=== PATIENT | male | born 1980 | race Caucasian/White ===

== ENCOUNTER → 2016-12-22 | Outpatient (REF) | payer BC | LOC: M LAB REF 12:16 | PROVIDERS: ATTEND Physician Assistant Medical | DX: M54.5 Low back pain (principal) ==

== ENCOUNTER → 2017-03-26 | Outpatient (REF) | payer BC | LOC: M LAB REF 17:35 | DX: J02.9 Acute pharyngitis, unspecified (principal) | CPT/HCPCS: 87081 ==

== ENCOUNTER 2017-12-26 22:20 | Emergency (ER) | payer BC | END 2017-12-27 02:29 | disposition left against medical advice (07) | LOC: M ED 22:20 | DX: Z53.29 Procedure and treatment not carried out because of patient's decision for other reasons (principal) ==

== ENCOUNTER 2017-12-27 12:29 | Emergency (ER) | payer BC ==
[2017-12-27] MEDS: KETOROLAC 30 MG/ML VIAL (J1885) IV (14:53)
== END 2017-12-27 15:10 | disposition home or self-care (01) ==
LOC: M ED 12:29
DX: K40.00 Bilateral inguinal hernia, with obstruction, without gangrene, not specified as recurrent (principal); Z88.5 Allergy status to narcotic agent; F17.200 Nicotine dependence, unspecified, uncomplicated
CPT/HCPCS: J1885

== ENCOUNTER → 2017-12-27 | Outpatient (CLI) | payer BC ==
[2017-12-27 12:56] LABS: BASO # 0.1 10^3/uL (0.0-0.2); BASO % 0.7 % (0.0-1.0); EOS # 0.3 10^3/uL (0.0-0.50); EOS % 3.5 % (0.0-3.0); HEMATOCRIT 47.7 % (42.0-52.0); IMMATURE GRANULOCYTE % 0.4 % (0-3.0); LYMPH # 1.9 10^3/uL (1.5-4.5); LYMPH % 23.1 % (24.0-44.0); MEAN CORPUSCULAR HEMOGLOBIN 28.8 pg (27.0-33.0); MEAN CORPUSCULAR HGB CONC 33.5 g/dl (32.0-36.5); MEAN CORPUSCULAR VOLUME 85.9 fl (80.0-96.0); MONO # 0.8 10^3/uL (0.0-0.8); MONO % 9.5 % (0.0-5.0); NEUTROPHILS # 5.1 10^3/uL (1.8-7.7); NEUTROPHILS % 62.8 % (36.0-66.0); PLATELET COUNT, AUTOMATED 259 10^3/uL (150-450); RED BLOOD COUNT 5.55 10^6/uL (4.30-6.10); RED CELL DISTRIBUTION WIDTH 12.7 % (11.5-14.5)
[2017-12-27 13:11] LABS: ALBUMIN/GLOBULIN RATIO 1.05 (1.00-1.93); ALKALINE PHOSPHATASE 100 U/L (45-117); ALT/SGPT 38 U/L (12-78); AMYLASE 44 U/L (25-115); ANION GAP 9 MEQ/L (8-16); AST/SGOT 16 U/L (7-37); BILIRUBIN,TOTAL 0.3 MG/DL (0.2-1.0); BLOOD UREA NITROGEN 13 MG/DL (7-18); CALCIUM LEVEL 8.7 MG/DL (8.5-10.1); CARBON DIOXIDE LEVEL 24 MEQ/L (21-32); CHLORIDE LEVEL 107 MEQ/L (98-107); CREATININE FOR GFR 1.07 MG/DL (0.70-1.30); GLOMERULAR FILTRATION RATE > 60.0 (>60); GLUCOSE, FASTING 119 MG/DL (70-100); LIPASE 89 U/L (73-393); POTASSIUM SERUM 4.1 MEQ/L (3.5-5.1); SODIUM LEVEL 140 MEQ/L (136-145); TOTAL PROTEIN 7.8 GM/DL (6.4-8.2)
== END ==
LOC: M ADAMS 11:47
DX: R10.9 Unspecified abdominal pain (principal); K40.20 Bilateral inguinal hernia, without obstruction or gangrene, not specified as recurrent
CPT/HCPCS: 82150

== ENCOUNTER 2018-01-27 09:20 | Day surgery (SDC) | payer BC ==
[2018-01-27] MEDS ORDERED: LR 1,000 ML IV ×3 (09:30→16:30)
[2018-01-27] MEDS ORDERED: ONDANSETRON 4MG/2ML VIAL (J2405) As Ordered ×2 (09:59→16:18)
[2018-01-27] MEDS ORDERED: PROPOFOL 200 MG/20 ML VIAL As Ordered (09:59)
[2018-01-27] MEDS ORDERED: LIDOCAINE 2% INJ 100 MG/5 ML SDV (FOR ANES.) As Ordered (09:59)
[2018-01-27] MEDS ORDERED: ROCURONIUM BROMIDE 50 MG/5 ML VIAL As Ordered (09:59)
[2018-01-27] MEDS ORDERED: dexameTHASONE 4 MG/ML 1ML VIAL (J1100) As Ordered ×2 (09:59)
[2018-01-27] MEDS ORDERED: fentaNYL 250 MCG/5 ML INJECTION (J3010) As Ordered (10:00)
[2018-01-27] MEDS ORDERED: MIDAZOLAM INJ 2 MG/2 ML VIAL (J2250) As Ordered (10:00)
[2018-01-27] MEDS ORDERED: SUGAMMADEX SODIUM 500 MG/5 ML VIAL (BRIDION) As Ordered (11:34)
[2018-01-27] MEDS: ceFAZolin 2 GM/D5W 50 ML IV BAG (J0690 PER 500MG) As Ordered (12:36)
[2018-01-27] MEDS: BUPIVACAINE/EPIN 0.25% 30 ML VIAL As Ordered (12:58)
[2018-01-27] MEDS ORDERED: NORCO, ANEXSIA 5/325MG TABLET (HYDROcodone/ACETAMINOPHEN) PO (14:30)
[2018-01-27] MEDS: PERCOCET 5MG/325MG TAB PO (14:40)
[2018-01-27] MEDS: MEPERIDINE INJ 25 MG/ML VIAL (J2175) IV (14:40)
[2018-01-27] MEDS ORDERED: PERCOCET 5MG/325MG TAB As Ordered (14:42)
[2018-01-27] MEDS ORDERED: MEPERIDINE INJ 25 MG/ML VIAL (J2175) As Ordered (14:43)
[2018-01-27] MEDS ORDERED: METOCLOPRAMIDE INJ 10MG/2ML VIAL (J2765) IV ×2 (15:00→16:30)
[2018-01-27] MEDS ORDERED: fentaNYL 100 MCG/2 ML INJECTION (J3010) IV ×2 (15:00→16:30)
[2018-01-27] MEDS ORDERED: ONDANSETRON 4MG/2ML VIAL (J2405) IV (15:00)
[2018-01-27] MEDS: ONDANSETRON 4MG/2ML VIAL (J2405) IV (16:20)
[2018-01-27] MEDS ORDERED: PERCOCET 5MG/325MG TAB PO (16:30)
[2018-01-27] MEDS ORDERED: MEPERIDINE INJ 25 MG/ML VIAL (J2175) IV (16:30)
== END 2018-01-27 17:05 | disposition home or self-care (01) ==
LOC: M SDC 09:20
DX: K40.90 Unilateral inguinal hernia, without obstruction or gangrene, not specified as recurrent (principal); R06.83 Snoring; Z88.5 Allergy status to narcotic agent; Z72.0 Tobacco use
CPT/HCPCS: 49650

== ENCOUNTER → 2019-07-20 | Outpatient (REF) | payer BC ==
[~2019-07-20] MED LIST: FLON1SPR; HYDR-3715 PO; IBUP-1022 PO; VIAG100T PO
[2019-07-20 14:02] LABS: FREE THYROXINE INDEX 2.5 % (1.4-3.8); THYROID STIMULATING HORMONE 0.991 uIU/ML (0.358-3.740); THYROXINE (T4) 7.7 UG/DL (4.5-12.0)
== END ==
LOC: M LABDRWAD 12:22
PROVIDERS: ATTEND Ophthalmology
DX: H16.223 Keratoconjunctivitis sicca, not specified as Sjogren's, bilateral (principal)

== ENCOUNTER → 2020-09-01 | Outpatient (CLI) | payer BC ==
--- NOTE | 2020-09-02 14:38 | SLEEPHOME ---
DATE: 09/01/2020 ORDERED BY: CONNIE Red[facility] home sleep testing was performed due to concern for the obstructive sleep apnea syndrome in this patient with a history of snoring, excessive somnolence, and nonrestorative sleep. For testing, a nocturnal T3 respiratory monitoring device was used. Continuous record was made of pulse, oxygen saturation, air flow, chest and abdominal strain, and body position. Eleven hours and 59 minutes of data were reviewed. There were 9 hours and 43 minutes marked as time in bed. During the interval marked time in bed, there were 96 respiratory events identified of 10 seconds in duration or greater for a respiratory event index of 9.9. The events were primarily obstructive. Baseline pulse rate was 63. Pulse rate ranged 27 to 142. Baseline saturation was 92%. Saturations fell to 81%. Testing was performed in both the supine and nonsupine positions. IMPRESSION: Abnormal home sleep testing with repetitive respiratory events and oxygen desaturations to 81% with a respiratory event index of 9.9 is consistent with the obstructive sleep apnea syndrome. RECOMMENDATION: The patient should be encouraged to undergo a formal sleep evaluation. cc: THEA SOUZA MD
== END ==
LOC: M SLEEP HO 09:32
PROVIDERS: ATTEND Nurse Practitioner Family
DX: R06.83 Snoring (principal)

== ENCOUNTER → 2020-09-08 | Outpatient (REF) | payer BC | LOC: M LAB REF 09:10 | PROVIDERS: ATTEND Surgery | DX: K64.4 Residual hemorrhoidal skin tags (principal) ==

== ENCOUNTER → 2022-08-26 | Outpatient (REF) | payer BC ==
[2022-08-26 14:55] LABS: HEMATOCRIT 47.1 % (42.0-52.0); HEMOGLOBIN 15.6 g/dl (13.5-17.5); MEAN CORPUSCULAR HEMOGLOBIN 29.2 pg (27.0-33.0); MEAN CORPUSCULAR HGB CONC 33.1 g/dl (32.0-36.5); PLATELET COUNT, AUTOMATED 273 10^3/uL (150-450); RED BLOOD COUNT 5.35 10^6/uL (4.30-6.10); WHITE BLOOD COUNT 9.9 10^3/uL (4.0-10.0)
[2022-08-26 15:19] LABS: ALKALINE PHOSPHATASE 96 U/L (46-116); ALT/SGPT 57 U/L (7.0-40); AST/SGOT 27 U/L (<34); BILIRUBIN,TOTAL 0.6 MG/DL (0.3-1.2); BLOOD UREA NITROGEN 11 MG/DL (9-23); CALCIUM LEVEL 10.1 MG/DL (8.5-10.1); CARBON DIOXIDE LEVEL 25 MMOL/L (20-31); CHLORIDE LEVEL 104 MMOL/L (98-107); CHOLESTEROL LEVEL 195 MG/DL (<200); CHOLESTEROL RISK RATIO 5.32 (<5); CREATININE FOR GFR 0.85 MG/DL (0.70-1.30); GLOMERULAR FILTRATION RATE > 60.0 (>60); GLUCOSE, FASTING 97 MG/DL (60-100); HDL CHOLESTEROL 36.6 MG/DL (>40); LDL CHOLESTEROL 91.2 MG/DL (<100); NON-HDL-C 158.4 MG/DL; SODIUM LEVEL 138 MMOL/L (136-145); TOTAL PROTEIN 7.4 G/DL (5.7-8.2); TRIGLYCERIDES LEVEL 336 MG/DL (<150)
[2022-08-26 15:36] LABS: HEMOGLOBIN A1c 5.4 % (4.0-6.0)
== END ==
LOC: M SFHCADAM 11:48
PROVIDERS: ATTEND Family Medicine
DX: G47.33 Obstructive sleep apnea (adult) (pediatric) (principal); Z68.35 Body mass index [BMI] 35.0-35.9, adult; Z13.1 Encounter for screening for diabetes mellitus; Z13.220 Encounter for screening for lipoid disorders

== ENCOUNTER → 2023-04-11 | Outpatient (REF) | payer BC | LOC: M SFHCADAM 12:47 | PROVIDERS: ATTEND Physician Assistant | DX: J02.9 Acute pharyngitis, unspecified (principal); B95.4 Other streptococcus as the cause of diseases classified elsewhere ==

== ENCOUNTER 2023-06-08 09:11 | Day surgery (SDC) | payer BC ==
[~2023-06-08] VITALS: Ht 182.9 cm; Wt 110.2 kg
[2023-06-08] MEDS: NS 1,000 ML IV ONE (06:00)
[2023-06-08 10:26] VITALS: TEMP 97.8
[2023-06-08] MEDS ORDERED: LIDOCAINE 2% 100MG/5ML SDV (FOR ANES.) As Ordered ONE (10:32)
[2023-06-08] MEDS ORDERED: propofoL 200 MG/20 ML VIAL As Ordered ONE (10:32)
[2023-06-08 10:45] VITALS: BP 122/70; O2SAT 98
== END 2023-06-08 10:53 | disposition home or self-care (01) ==
LOC: M OPP 09:11
PROVIDERS: ATTEND Surgery
DX: K64.1 Second degree hemorrhoids (principal); K92.1 Melena; G47.30 Sleep apnea, unspecified; Z87.891 Personal history of nicotine dependence; Z88.5 Allergy status to narcotic agent

== ENCOUNTER → 2023-11-01 | Outpatient (CLI) | payer BC | LOC: M SOG 14:32 | PROVIDERS: ATTEND Physician Assistant | DX: M25.521 Pain in right elbow (principal) ==